=== PATIENT | female | born 1990 | race Caucasian/White ===

== ENCOUNTER 2017-07-29 23:34 | Emergency (ER) | payer OTHER ==
[~2017-07-29] VITALS: Ht 160 cm; Wt 75.3 kg
[~2017-07-29 23:34] MED LIST: ACET-1311 PO; BCPILLS PO; ESCI10TA17 PO; LORA-741 PO
[2017-07-29 23:44] VITALS: TEMP 36.8; Ht 160 cm; Wt 75.3 kg
[2017-07-29] MEDS ORDERED: SODIUM CHLORIDE 0.9% 1000ML 1,000 ML IV STA (23:57)
--- NOTE | 2017-07-29 23:58 | EMERGENCY ROOM VISIT NOTE ---
History Report prepared by Homar: Lauryn Hills Under the Supervision of: Dr. Emiliano Hatch M.D. First contact with patient: 23:50 Chief Complaint: ABDOMINAL PAIN Stated Complaint: ABDOMINAL PAIN History of Present Illness The patient is a 26 year old female who presents to the Emergency Room with complaints of sudden left-sided abdominal pain beginning tonight. She states that the pain also radiates to her back. The patient also reports having nausea , but denies vomiting and fevers. The patient states that her last menstrual cycle was last week. The patient states that she took Tylenol for her pain, but that it did not help. She denies recent falls and injuries. She states that her last bowel movement was tonight. The patient states that she takes lorazepam and Ativan daily. She also reports being on control, but that she does not take it regularly. Source of History: patient Onset: tonight Position: abdomen Timing: other (sudden) Associated Symptoms: + nausea, + back pain, No fevers, No vomiting Review of Systems See HPI for pertinent positives & negatives. A total of 10 systems reviewed and were otherwise negative. Past Medical & Surgical Medical Problems: (1) Hemorrhagic stroke Family History FH: heart disease Hypertension Kidney disease Kidney stones Social History Smoking Status: Never Smoker Marital Status: single Occupation Status: employed Current/Historical Medications Scheduled Control Pills ( Control Pills), 1 TAB PO QPM Cephalexin Monohydrate (Keflex), 500 MG PO TID Escitalopram (Lexapro), 10 MG PO QAM Scheduled PRN Lorazepam (Ativan), 0.5 MG PO TID PRN for Anxiety Allergies Coded Allergies: Penicillins (Unverified Allergy, Intermediate, HIVES OR RASH, 07/30/17) Sulfa Antibiotics (Unverified Allergy, Intermediate, HIVES OR RASH, ) Physical Exam Vital Signs Date Time Temp Pulse Resp B/P (MAP) Pulse Ox O2 Delivery O2 Flow Rate FiO2 07/30/17 01:33 78 20 117/76 99 Room Air 07/29/17 23:44 36.8 86 16 118/79 99 Room Air Physical Exam GENERAL: Patient is uncomfortable appearing and in moderate distress. HEENT: No acute trauma, normocephalic atraumatic, mucous membranes moist, no nasal congestion, no scleral icterus. NECK: No stridor, no adenopathy, no meningismus, trachea is midline. LUNGS: No dyspnea. Clear to auscultation and equal bilaterally. No wheeze, no rhonchi. HEART: Regular rate and rhythm. No murmurs, rubs, gallops appreciated. ABDOMEN: Mild left lower quadrant tenderness to palpation and moderate right lower quadrant tenderness to palpation with guarding. BACK: No midline tenderness, no CVA tenderness EXTREMITIES: Normal motion all extremities, no cyanosis, no edema. NEUROLOGIC: Alert and oriented, no acute motor or sensory deficits, no focal weakness, cranial nerves grossly intact. SKIN: No rash, no jaundice, no diaphoresis. Medical Decision & Procedures ER Provider Diagnostic Interpretation: Radiology results and stated below per my review and [facility]. CT ABDOMEN & PELVIS With Contrast: No bowel dilation or free air. Abdominal solid organs and partially contracted gallbladder appear within limits. Normal caliber appendix without secondary signs. Ovaries appear within limits. No free fluid. Laboratory Results 07/30/17 00:15 Red Blood Count 3.78, Mean Corpuscular Volume 89.4, Mean Corpuscular Hemoglobin 29.4, Mean Corpuscular Hemoglobin Concent 32.8, Mean Platelet Volume 11.0, Neutrophils (%) (Auto) 61.3, Lymphocytes (%) (Auto) 27.5, Monocytes (%) (Auto) 9.7, Eosinophils (%) (Auto) 1.0, Basophils (%) (Auto) 0.4, Neutrophils # (Auto) 4.72, Lymphocytes # (Auto) 2.12, Monocytes # (Auto) 0.75, Eosinophils # (Auto) 0.08, Basophils # (Auto) 0.03 07/30/17 00:15 Test 07/30/17 00:05 07/30/17 00:15 Urine Color YELLOW Urine Appearance CLOUDY (CLEAR) Urine pH >= 9.0 (4.5-7.5) Urine Specific [place] 1.026 (1.000-1.030) Urine Protein NEG (NEG) Urine Glucose (UA) NEG (NEG) Urine Ketones NEG (NEG) Urine Occult Blood 1+ (NEG) Urine Nitrite NEG (NEG) Urine Bilirubin NEG (NEG) Urine Urobilinogen NEG (NEG) Urine Leukocyte Esterase LARGE (NEG) Urine WBC (Auto) >30 /hpf (0-5) Urine RBC (Auto) 0-4 /hpf (0-4) Urine Hyaline Casts (Auto) 5-10 /lpf (0-5) Urine Epithelial Cells (Auto) >30 /lpf (0-5) Urine Bacteria (Auto) 3+ (NEG) Urine Test NEG (NEG) White Blood Count 7.71 K/uL (4.8-10.8) Red Blood Count 3.78 M/uL (4.2-5.4) Hemoglobin 11.1 g/dL (12.0-16.0) Hematocrit 33.8 % (37-47) Mean Corpuscular Volume 89.4 fL (80-100) Mean Corpuscular Hemoglobin 29.4 pg (25-34) Mean Corpuscular Hemoglobin Concent 32.8 g/dl (32-36) Platelet Count 198 K/uL (130-400) Mean Platelet Volume 11.0 fL (7.4-10.4) Neutrophils (%) (Auto) 61.3 % Lymphocytes (%) (Auto) 27.5 % Monocytes (%) (Auto) 9.7 % Eosinophils (%) (Auto) 1.0 % Basophils (%) (Auto) 0.4 % Neutrophils # (Auto) 4.72 K/uL (1.4-6.5) Lymphocytes # (Auto) 2.12 K/uL (1.2-3.4) Monocytes # (Auto) 0.75 K/uL (0.11-0.59) Eosinophils # (Auto) 0.08 K/uL (0-0.5) Basophils # (Auto) 0.03 K/uL (0-0.2) RDW Standard Deviation 42.0 fL (36.4-46.3) RDW Coefficient of Variation 13.0 % (11.5-14.5) Immature Granulocyte % (Auto) 0.1 % Immature Granulocyte # (Auto) 0.01 K/uL (0.00-0.02) Anion Gap 7.0 mmol/L (3-11) Est Creatinine Clear Calc Drug Dose 124.0 ml/min Estimated GFR () 141.9 Estimated GFR (Non- 122.4 BUN/Creatinine Ratio 12.8 (10-20) Calcium Level 8.3 mg/dl (8.5-10.1) Total Bilirubin 0.1 mg/dl (0.2-1) Direct Bilirubin < 0.1 mg/dl (0-0.2) Aspartate Amino Transf (AST/SGOT) 12 U/L (15-37) Alanine Aminotransferase (ALT/SGPT) 18 U/L (12-78) Alkaline Phosphatase 70 U/L (45-117) Total Protein 6.7 gm/dl (6.4-8.2) Albumin 3.7 gm/dl (3.4-5.0) Lipase 199 U/L (73-393) Laboratory results as reviewed by me. Medications Administered Medications (Trade) Dose Ordered Sig/Min Route Start Time Stop Time Status Last Admin Dose Admin Sodium Chloride 1,000 ml @ 999 mls/hr Q1H1M STAT IV 07/29/17 23:57 07/30/17 00:57 DC 07/29/17 23:57 999 MLS/HR Ceftriaxone Sodium (Rocephin Inj) 1 gm NOW STAT IV 07/30/17 01:28 07/30/17 01:29 DC 07/30/17 01:33 1 GM ED Course 2350: The patient was evaluated in room B4B. A complete history and physical exam was performed. 2357: Ordered Sodium Chloride 1,000 ml @ 999 mls/hr IV. 0120: The patient states that she feels better and notes that she has had urine infections in the past. She does not know what antibiotics she has been on, but does not recall Keflex. 0128: Ordered Rocephin Inj 1 gm IV. 0130: Reevaluated the patient. Discussed results and discharge instructions: She verbalized understanding and agreement. The patient is ready for discharge. Medical Decision Differential: Appendicitis, Ovarian Torsion, PID, Tubo-ovarian Abscess, Intrauterine , Ectopic , Endometriosis, amongst other pathologies entertained. 26 yr old female arrives for left lower abdominal pain though clearly has TTP over RLQ. She is clearly uncomfortable enough with palpation that I can not reliably say this isn't appendicitis without imaging thus right to CT. Labs unremarkable other than clearly dirty UA with bacteria which after negative CT would presume is main cause of her symptoms. No cysts on ovaries and not consistent with PID/TOA. She is not . Previous UTIs. Will treat with Rocephin and continue with keflex. Medication Reconcilliation Current Medication List: was personally reviewed by me Blood Pressure Screening Patient's blood pressure: Normal blood pressure Impression Primary Impression: Urinary tract infection Scribe Attestation The scribe's documentation has been prepared under my direction and personally reviewed by me in its entirety. I confirm that the note above accurately reflects all work, treatment, procedures, and medical decision making performed by me. Departure Information Dispostion Home / Self-Care Prescriptions Cephalexin Monohydrate (Keflex) 500 Mg Cap 500 MG PO TID for 5 Days, #15 CAP Prov: Emiliano Hatch M.D. 07/30/17 Referrals No Doctor, Assigned (PCP) Forms HOME CARE DOCUMENTATION FORM, IMPORTANT VISIT INFORMATION Patient Instructions ED UTI Cystitis Female, My [facility] Problem Qualifiers Primary Impression: Urinary tract infection Urinary tract infection type: acute cystitis Hematuria presence: without hematuria Qualified Codes: N30.00 - Acute cystitis without hematuria
[2017-07-30] MEDS ORDERED: OPTIRAY 320 IV PRN (00:15)
[2017-07-30 00:23] LABS: BASO % 0.4 %; BASO ABS # 0.03 K/uL (0-0.2); COMPLETE YES; HEMATOCRIT 33.8 % (37-47); IG% 0.1 %; LYMPH % 27.5 %; LYMPH ABS # 2.12 K/uL (1.2-3.4); MEAN CELL VOLUME 89.4 fL (80-100); MEAN CORPUSCULAR HEMOGLOBIN 29.4 pg (25-34); MEAN CORPUSCULAR HGB CONC 32.8 g/dl (32-36); MONO % 9.7 %; NEUT % 61.3 %; PLATELET COUNT 198 K/uL (130-400); RED BLOOD COUNT 3.78 M/uL (4.2-5.4); WHITE BLOOD COUNT 7.71 K/uL (4.8-10.8)
[2017-07-30 00:25] LABS: URINE APPEARANCE CLOUDY (CLEAR); URINE BILIRUBIN NEG (NEG); URINE COLOR YELLOW; URINE EPITHELIAL CELL AUTO >30 /lpf (0-5); URINE NITRITE NEG (NEG); URINE PH >= 9.0 (4.5-7.5); URINE SPECIFIC GRAVITY 1.026 (1.000-1.030); UROBILINOGEN NEG (NEG); ZZUR CULT IF INDIC CLEAN CATCH YES
[2017-07-30 00:29] LABS: MANUAL MICROSCOPIC REQUIRED? NO; REVIEW REQ? NO; SULFASALICYLIC ACID NEG (NEG)
[2017-07-30 00:44] LABS: ALT/SGPT 18 U/L (12-78); AST/SGOT 12 U/L (15-37); BLOOD UREA NITROGEN 9 mg/dl (7-18); BUN/CREATININE RATIO 12.8 (10-20); CALCIUM 8.3 mg/dl (8.5-10.1); CARBON DIOXIDE 27 mmol/L (21-32); CHLORIDE 107 mmol/L (98-107); CREATININE 0.68 mg/dl (0.60-1.20); GLUCOSE 113 mg/dl (70-99); POTASSIUM 3.8 mmol/L (3.5-5.1); SODIUM 141 mmol/L (136-145)
[2017-07-30 00:47] LABS: ALKALINE PHOSPHATASE 70 U/L (45-117)
[2017-07-30] MEDS ORDERED: CEFTRIAXONE SOD INJ 1 GM ADDVIAL IV STA (01:28)
[2017-07-30] MEDS ORDERED: CEPH500C PO (01:29)
[2017-07-30 01:33] VITALS: BP 117/76; PULSE 78; O2SAT 99
--- NOTE | 2017-07-30 06:59 | DIAGNOSTIC IMAGING REPORT ---
CT OF THE ABDOMEN AND PELVIS WITH CONTRAST CLINICAL HISTORY: Lower abdominal pain. Tenderness to palpation over the right lower quadrant. COMPARISON STUDY: None. TECHNIQUE: Following IV administration of 116 mL of [id number]-320, axial images of the abdomen and pelvis were obtained from the lung bases to the proximal femurs. Images were reviewed in the axial, sagittal, and coronal planes. IV contrast was administered without complication. A dose lowering technique was utilized adhering to the principles of ALARA. CT DOSE: 466.42 mGy.cm FINDINGS: A 1 cm hypodense right hepatic lobe lesion is too small to characterize but likely benign. The spleen, adrenal glands, kidneys and pancreas are normal. There is no biliary or pancreatic ductal dilatation. There is no peripancreatic or pericholecystic infiltration. No hydronephrosis is present. Caliber and wall thickness of small and large bowel are normal. The appendix is slightly dilated, measuring 7 mm in caliber. However, there is no periappendiceal infiltration. There are no findings to strongly suggest acute appendicitis. The ovaries are not enlarged. No lymphadenopathy is present. Major vasculature of the abdomen and pelvis is patent. Incidental note is made of a retroaortic left renal vein. Skeletal structures are unremarkable. IMPRESSION: 1. No acute process within the abdomen or pelvis. 2. Minimal appendiceal dilatation without periappendiceal infiltration. No findings to strongly suggest acute appendicitis. Electronically signed by: Jared Rodriguez M.D. 07/30/2017 6:57 AM Dictated Date/Time: 07/30/2017 6:51 AM
== END 2017-07-30 02:02 | disposition home or self-care (01) ==
LOC: C.EDB 23:35
DX: N30.00 Acute cystitis without hematuria (principal); Z86.73 Personal history of transient ischemic attack (TIA), and cerebral infarction without residual deficits; Z82.49 Family history of ischemic heart disease and other diseases of the circulatory system; Z84.1 Family history of disorders of kidney and ureter